=== PATIENT | female | born 1985 | race African-American/Black ===

== ENCOUNTER 2020-05-28 15:34 | Outpatient (CLI) | payer OTHER ==
--- NOTE | 2020-05-28 16:04 | ULT ---
EXAM: US Soft Tissue Other PROVIDED CLINICAL HISTORY: Left axillary lump COMPARISON: None FINDINGS: Limited sonographic interrogation was performed of the left axilla. There is no sonographic evidence for mass or fluid collection. The sonographic appearance of the soft tissues in this region is normal. IMPRESSION: As above.
--- NOTE | 2020-05-28 16:04 | ULT ---
EXAM: US Soft Tissue Other PROVIDED CLINICAL HISTORY: Right axillary lump COMPARISON: None FINDINGS: Limited sonographic interrogation was performed of the right axilla. There is no sonographically appa rent mass or fluid collection. The sonographic appearance of the soft tissues in this region is normal. IMPRESSION: As above.
== END 2020-05-28 15:35 | disposition home or self-care (01) ==
LOC: BICULT 15:34
PROVIDERS: ATTEND Physician Assistant
DX: R59.0 Localized enlarged lymph nodes (principal)
CPT/HCPCS: 76999